=== PATIENT | female | born 1975 | race Caucasian/White ===

== ENCOUNTER 2018-03-26 10:38 | Inpatient (IN) | END 2018-03-28 14:22 | disposition home or self-care (01) | DRG 65 ==

== ENCOUNTER 2018-04-12 16:31 | Inpatient (IN) | payer OTHER ==
[~2018-04-12] VITALS: Ht 165.1 cm; Wt 103.0 kg
[~2018-04-12 16:31] MED LIST: ACET325T33 PO; ASPI325T32 PO; ATOR40TA68 PO; DOCU-216 PO; LOSA1TAB9 PO; METO-319 PO; METO-336 PO; NICO-544 TRANSDERM; NIFE30TA2 PO; TRAM50TA PO
--- NOTE | 2018-04-12 16:52 | ERD ---
ER Documentation Chief Complaint Chief Complaint BIB SELF, CC: DIZZY, CANNOT WALK STRAIGHT SINCE MORNING, HX OF STROKE HPI This is a 42-year-old female with a prior history of stroke, with she presented to the ED on March 25, with dizziness, today her complaint is dizziness again associated with vomiting, began last night acute/early subacute left gangliocapsular lacunar infarct involving the posterior limb internal capsule ROS All systems reviewed and are negative except as per history of present illness. Medications Home Meds Active Scripts Metoprolol Succinate* (Toprol XL*) 100 Mg Tab.sr.24h, 100 MG PO DAILY for 30 Days, #30 Prov:ÁNGEL DENSON MD 03/28/18 Atorvastatin* (Atorvastatin*) 40 Mg Tablet, 40 MG PO QHS for 14 Days, #15 TAB Prov:ÁNGEL DENSON MD 03/28/18 Aspirin (Aspir-Sherri) 325 Mg Tablet.dr, 325 MG PO DAILY for 14 Days Prov:ÁNGEL DENSON MD 03/28/18 Metoprolol Succinate* (Toprol XL*) 50 Mg Tab.er.24h, 50 MG PO DAILY for 15 Days, #15 Prov:ÁNGEL DENSON MD 03/28/18 Reported Medications Metformin Hcl* (Metformin Hcl*) 500 Mg Tablet, 500 MG PO WITH MEALS, #90 TAB 04/12/18 Losartan/Hydrochlorothiazide (Hyzaar 100-12.5 Tablet) 1 Each Tablet, 1 EACH PO DAILY, TAB 03/25/18 Tramadol Hcl* (Ultram*) 50 Mg Tablet, 50 MG PO TID PRN for PAIN, TAB 03/25/18 Discontinued Scripts Nifedipine (Procardia Xl) 30 Mg Tab.er.24, 30 MG PO DAILY for 30 Days, #30 TAB Prov:ÁNGEL DENSON MD 03/28/18 Docusate Sodium (Dok) 100 Mg Capsule, 100 MG PO Q12H PRN for CONSTIPATION for 1 Day, CAP Prov:ÁNGEL DENSON MD 03/28/18 Acetaminophen* (Tylenol*) 325 Mg Tablet, 650 MG PO Q6H PRN for PAIN LEVEL 1-3 OR FEVER for 1 Day, TAB Prov:ÁNGEL DENSON MD 03/28/18 Nicotine* (Nicotine* Patch) 7 mg/day Patch, 1 PATCH TRANSDERM DAILY PRN for CONTROL WITHDRAWAL SYMPTOMS for 1 Day Prov:ÁNGEL DENSON MD 03/28/18 Allergies Allergies: Coded Allergies: Penicillins (Verified Allergy, Unknown, rash/facial swelling, 04/12/18) PMhx/Soc History of Surgery: Yes () Anesthesia Reaction: No Hx Neurological Disorder: Yes (admitted for CVA) Hx Respiratory Disorders: No Hx Cardiac Disorders: Yes (HTN, hypothyroid) Hx Psychiatric Problems: No Hx Miscellaneous Medical Probl: Yes (See EMR for details. ) Hx Alcohol Use: No Hx Substance Use: No Hx Tobacco Use: Yes Physical Exam Vitals Vital Signs Date Temp Pulse Resp B/P (MAP) Pulse Ox O2 O2 Flow FiO2 Time Delivery Rate 04/12/18 97 17 157/98 99 Room Air 17:00 (117) 04/12/18 98 24 147/93 99 Room Air 16:40 (111) 04/12/18 98.1 103 19 173/102 16:35 (125) Physical Exam Const: No acute distress Head: Atraumatic Eyes: Normal Conjunctiva ENT: Normal External Ears, Nose and Mouth. Neck: Full range of motion. No meningismus. Resp: Clear to auscultation bilaterally Cardio: Regular rate and rhythm, no murmurs Abd: Soft, non tender, non distended. Normal bowel sounds Skin: No petechiae or rashes Back: No midline or flank tenderness Ext: No cyanosis, or edema Neur: Awake and alert, cranial nerves II through XII intact, no cerebellar ataxia Psych: Normal Mood and Affect Result Diagram: 04/12/18 1649 04/12/18 1649 Results 24 hrs Laboratory Tests Test 04/12/18 16:47 04/12/18 16:49 Bedside Glucose 231 mg/dL White Blood Count 11.7 10^3/ul Red Blood Count 5.15 10^6/ul Hemoglobin 15.3 g/dl Hematocrit 44.3 % Mean Corpuscular Volume 86.0 fl Mean Corpuscular Hemoglobin 29.7 pg Mean Corpuscular Hemoglobin Concent 34.5 g/dl Red Cell Distribution Width 13.1 % Platelet Count 395 10^3/UL Mean Platelet Volume 10.0 fl Immature Granulocytes % 0.300 % Neutrophils % 76.5 % Lymphocytes % 18.7 % Monocytes % 3.9 % Eosinophils % 0.3 % Basophils % 0.3 % Nucleated Red Blood Cells % 0.0 /100WBC Immature Granulocytes # 0.040 10^3/ul Neutrophils # 9.0 10^3/ul Lymphocytes # 2.2 10^3/ul Monocytes # 0.5 10^3/ul Eosinophils # 0.0 10^3/ul Basophils # 0.0 10^3/ul Nucleated Red Blood Cells # 0.0 10^3/ul Prothrombin Time 13.0 Sec Prothrombin Time Ratio 1.0 INR International Normalized Ratio 0.97 Activated Partial Thromboplast Time 26.9 Sec Sodium Level 137 mmol/L Potassium Level 4.1 mmol/L Chloride Level 101 mmol/L Carbon Dioxide Level 25 mmol/L Anion Gap 11 Blood Urea Nitrogen 15 mg/dl Creatinine 0.52 mg/dl Est Glomerular Filtrat Rate mL/min > 60 mL/min Glucose Level 239 mg/dl Hemoglobin A1c 7.4 % Calcium Level 10.5 mg/dl Creatine Kinase 37 IU/L Creatine Kinase Index 1.0 Creatinine Kinase MB (Mass) 0.36 ng/ml Troponin I < 0.012 ng/ml Triglycerides Level 371 mg/dl Cholesterol Level 189 mg/dl LDL Cholesterol, Calculated 81 mg/dl HDL Cholesterol 34 mg/dl Cholesterol/HDL Ratio 5.5 RATIO Ethyl Alcohol Level < 10.0 mg/dl Current Medications Medications Dose Sig/Josh Start Time Status Last (Trade) Ordered Route PRN Stop Time Admin Dose Reason Admin IV Flush 10 ml STK-MED 04/12/18 DC (NS 10 ml) ONCE .ROUTE 16:59 04/12/18 17:00 Sodium 100 ml @ ud STK-MED 04/12/18 DC Chloride ONCE .ROUTE 16:59 04/12/18 17:00 Iohexol 100 ml @ ud STK-MED 04/12/18 DC ONCE .ROUTE 16:59 04/12/18 17:00 Procedures/MDM This is a 42-year-old female presents for evaluation of vertiginous dizziness and nausea and vomiting. As noted above the patient has a history of stroke, which had been diagnosed by MRI on March 25, given her recurrence in symptoms, I ordered a code stroke, CT and CTA were negative, and I discussed the case with Dr. Denson, who did not recommend TPA at this time, as the patient had a recent stroke and her symptoms are now the same, this could be her previous stroke symptoms being exacerbated by hyperglycemia or infection. She will be admitted to telemetry, patient was agreeable to this plan of care. Critical Care Time: 35 minutes Treatments/Evaluations: Close monitoring and treatment of unstable vital signs, cardiorespiratory, and neurologic status, while maintaining tight balance of fluid, respiratory, and cardiac interventions. This time includes discussing the case with the patient and the patient's family. This time does not include all procedures stated elsewhere in this record. This time also includes reviewing old records, labs and radiological studies. This time includes examining and re- examining the patient. Additionally, this time also includes arranging care with admitting and consulting physicians. EKG: Rate/Rhythm: Normal Sinus Rhythm QRS, ST, T-waves: ST depressions noted in lead II, no ST elevations Impression: Abnormal EKG, no arrhythmia Departure Diagnosis: Primary Impression: Vertigo Additional Impression: History of stroke Condition: Stable ISAAK CHEEMA MD Apr 12, 2018 16:52
[2018-04-12] MEDS ORDERED: IOHEXOL 100 ML ONE (16:59)
[2018-04-12] MEDS ORDERED: SOD CHLORIDE 0.9% 100 ML ONE (16:59)
[2018-04-12] MEDS ORDERED: METF500T24 PO (17:13)
--- NOTE | 2018-04-12 17:45 | CONS ---
DATE OF ADMISSION: 04/12/2018 DATE OF CONSULTATION: 04/12/2018 I have asked to see the patient for recurrent vertigo. HISTORY OF PRESENT ILLNESS: The patient is a 42-year-old female with past medical history of hyperch olesterolemia, hypertension and diabetes. The patient was admitted in the middle of 03/2018, at [facility] h time she suffered a very small lacunar left-sided stroke with symptoms of vertigo. The patient now returns with similar symptoms. She denies dysarthria. She denies dysphagia. She denies diplopia. The patient denies weakness of her arms or legs. The patient does feel as though she has nausea, vo miting and mild headache. The patient has been taking aspirin and has been compliant with that. The patient's prior workup revealed no large vessel disease. Again tonight, the patient had a CT scan o f the head as well as a CTA of the head and neck which revealed no large vessel disease. The patient has had no prior history of hemorrhage. PAST MEDICAL HISTORY: As described. PHYSICAL EXAMINATION: NEUROLOGIC: She scored an NIH stroke scale score of 0, but did have subjective symptoms of vertigo. VITAL SIGNS: Her pulse rate was 95, sinus rhythm. Her blood pressure is 157/88. LABORATORY DATA: The patient's blood sugar was 231. ASSESSMENT: This is a 42-year-old female who has recurrent of vertigo that is likely ischemic in nathalia ure. This is likely from worsening of her prior deficit due to hyperglycemia, mild infection or othe r medical cause or new recurrent lacunar syndrome. The patient should be given a fluid bolus of 500 mL and hydrated. She should be allowed to be permissively hypertensive. She should be followed with frequent neuro checks. The patient should have Plavix added to her regimen of aspirin and this shou ld be overlapped for 2 weeks, after which she should be maintained on monotherapy Plavix. The patien t is not a candidate for endovascular therapy for TPA. I have discussed her workup and assessment wi the emergency department. Dictated By: HILARY BERNAL CM/KYLEE Conf#: [id number] DID#: [id number] CC: ISAAK CHEEMA MD;*EndCC*
[2018-04-12] MEDS ORDERED: ACETAMINOPHEN 650 MG SUPP PR PRN (18:00)
[2018-04-12] MEDS ORDERED: BISACODYL 10 MG SUPP PR PRN (18:00)
[2018-04-12] MEDS ORDERED: DOCUSATE SODIUM 100 MG CAP PO PRN (18:00)
[2018-04-12] MEDS ORDERED: ACETAMINOPHEN 325 MG TAB PO PRN (18:00)
[2018-04-12] MEDS ORDERED: morphine 2 MG INJ IV PRN (18:00)
[2018-04-12] MEDS ORDERED: NACL 0.9% 3 ML SYG IV SCH (18:00)
[2018-04-12] MEDS ORDERED: BISACODYL (EC) 5 MG TAB PO PRN (18:00)
[2018-04-12] MEDS ORDERED: ONDANSETRON 4 MG INJ IV PRN (18:00)
[2018-04-12] MEDS ORDERED: LABETALOL HCL 20MG INJ IV PRN (18:00)
[2018-04-12] MEDS ORDERED: OXYCODONE/ACETAMINOPHEN (5/325) TAB PO PRN (18:00)
[2018-04-12] MEDS ORDERED: GLUCOSE GEL 15 GRAM TUBE BUCCAL PRN (18:30)
[2018-04-12] MEDS ORDERED: GLUCOSE GEL 15 GRAM TUBE PO PRN ×2 (18:30)
[2018-04-12] MEDS ORDERED: DEXTROSE 50% 50 ML SYRINGE IV PRN ×2 (18:30)
[2018-04-12] MEDS ORDERED: GLUCAGON 1 MG INJ IM PRN (18:30)
[2018-04-12] MEDS ORDERED: MECLIZINE 12.5 MG TAB PO ONE (19:00)
[2018-04-12] MEDS: INSULIN ASPART [NOVOLOG] 3 ML PEN SC SCH ×2 (19:29→21:20)
[2018-04-12] MEDS: SOD CHLORIDE 0.9% 1,000 ML IV SCH (19:58)
[2018-04-12 20:15] VITALS: Ht 165.1 cm; Wt 103.0 kg
[2018-04-12] MEDS ORDERED: LORAZEPAM 2 MG INJ IV ONE (20:30)
[2018-04-12] MEDS ORDERED: INSULIN ASPART [NOVOLOG] 3 ML PEN SC SCH (21:00)
[2018-04-12] MEDS: FAMOTIDINE 20 MG TAB PO SCH (21:11)
[2018-04-12 22:44] VITALS: BP 161/74; PULSE 84; RESP 18
[2018-04-13] VITALS (10 sets, daily range): BP systolic 125–133; BP diastolic 66–70; PULSE 78–92; RESP 16–18
[2018-04-13] MEDS ORDERED: ZOLPIDEM 5 MG TAB PO ONE (00:30)
[2018-04-13] MEDS ORDERED: ACCU-CHEK XX SCH (02:00)
[2018-04-13] MEDS: SOD CHLORIDE 0.9% 1,000 ML IV SCH ×3 (04:14→13:53)
[2018-04-13] MEDS: FAMOTIDINE 20 MG TAB PO SCH (08:07)
[2018-04-13] MEDS: INSULIN ASPART [NOVOLOG] 3 ML PEN SC SCH ×3 (08:12→17:09)
--- NOTE | 2018-04-13 08:30 | CONS ---
Assessment/Plan Assessment/Plan Hospital Course A: 42 yo F with multiple stroke risk factors who p/w constant vertigo x 2 days, for which neurology is consulted. Most ominously concerning for a posterior circulation stroke. CTH is unremarkable. CTA H/N is unremarkable. P: MRI brain without contrast for further characterization Give ASA 325mg x1 dose now, followed by ASA 81mg daily for secondary stroke prevention Start Lipitor 40mg qhs for the same. Cont BP, BG and other medical management per primary PT/OT/ST as necessary Will follow clinically Result Diagram: 04/13/18 0549 04/13/18 0550 Results 24hrs Laboratory Tests Test 04/12/18 16:47 04/12/18 16:49 04/12/18 18:29 04/12/18 19:07 Bedside Glucose 231 H 202 White Blood Count 11.7 #H Red Blood Count 5.15 Hemoglobin 15.3 Hematocrit 44.3 Mean Corpuscular Volume 86.0 Mean Corpuscular 29.7 Hemoglobin Mean Corpuscular 34.5 Hemoglobin Concent Red Cell Distribution 13.1 Width Platelet Count 395 Mean Platelet Volume 10.0 Immature Granulocytes % 0.300 Neutrophils % 76.5 Lymphocytes % 18.7 Monocytes % 3.9 Eosinophils % 0.3 Basophils % 0.3 Nucleated Red Blood 0.0 Cells % Immature Granulocytes # 0.040 H Neutrophils # 9.0 H Lymphocytes # 2.2 Monocytes # 0.5 Eosinophils # 0.0 Basophils # 0.0 Nucleated Red Blood 0.0 Cells # Prothrombin Time 13.0 Prothrombin Time Ratio 1.0 INR International 0.97 Normalized Ratio Activated 26.9 Partial Thromboplast Time Sodium Level 137 Potassium Level 4.1 Chloride Level 101 Carbon Dioxide Level 25 Anion Gap 11 Blood Urea Nitrogen 15 Creatinine 0.52 Est Glomerular Filtrat > 60 Rate mL/min Glucose Level 239 H Hemoglobin A1c 7.4 H Calcium Level 10.5 H Creatine Kinase 37 Creatine Kinase Index 1.0 Creatinine Kinase MB 0.36 (Mass) Troponin I < 0.012 Triglycerides Level 371 H Cholesterol Level 189 LDL Cholesterol, 81 Calculated HDL Cholesterol 34 Cholesterol/HDL Ratio 5.5 Ethyl Alcohol Level < 10.0 H Urine Color YELLOW Urine Clarity CLEAR Urine pH 6.0 Urine Specific [place] > 1.060 H Urine Ketones NEGATIVE Urine Nitrite NEGATIVE Urine Bilirubin NEGATIVE Urine Urobilinogen NEGATIVE Urine Leukocyte Esterase NEGATIVE Urine Microscopic RBC 5 Urine Microscopic WBC 3 Urine Squamous FEW Epithelial Cells Urine Hemoglobin 1+ H Urine Glucose NEGATIVE Urine Total Protein 3+ H Urine Opiates Screen Negative Urine Barbiturates Negative Urine Amphetamines Negative Screen Urine Benzodiazepines Negative Screen Urine Cocaine Screen Negative Urine Cannabinoids Negative Test 04/12/18 21:17 04/13/18 02:55 04/13/18 05:49 04/13/18 05:50 Bedside Glucose 285 H 280 H White Blood Count 10.0 Red Blood Count 4.86 Hemoglobin 14.3 Hematocrit 42.1 Mean Corpuscular Volume 86.6 Mean Corpuscular 29.4 Hemoglobin Mean Corpuscular 34.0 Hemoglobin Concent Red Cell Distribution 13.2 Width Platelet Count 375 Mean Platelet Volume 10.5 H Immature Granulocytes % 0.300 Neutrophils % 66.2 Lymphocytes % 25.7 Monocytes % 6.4 Eosinophils % 1.0 Basophils % 0.4 Nucleated Red Blood 0.0 Cells % Immature Granulocytes # 0.030 Neutrophils # 6.6 Lymphocytes # 2.6 Monocytes # 0.6 Eosinophils # 0.1 Basophils # 0.0 Nucleated Red Blood 0.0 Cells # Hemoglobin A1c 7.3 H Sodium Level 140 Potassium Level 4.0 Chloride Level 100 Carbon Dioxide Level 27 Anion Gap 13 Blood Urea Nitrogen 16 Creatinine 0.59 Est Glomerular Filtrat > 60 Rate mL/min Glucose Level 217 Calcium Level 10.1 Phosphorus Level 3.6 Magnesium Level 1.8 Total Bilirubin 0.1 L Direct Bilirubin 0.00 Indirect Bilirubin 0.1 Aspartate Amino 19 Transf (AST/SGOT) Alanine 38 Aminotransferase (ALT/SG PT) Alkaline Phosphatase 45 Total Protein 7.5 Albumin 4.3 Globulin 3.20 Albumin/Globulin Ratio 1.34 Test 04/13/18 08:06 Bedside Glucose 214 Consultation Date/Type/Reason Admit Date/Time Apr 12, 2018 at 17:51 Type of Consult Neurology Reason for Consultation r/o stroke Requesting Provider: ÁNGEL DENSON MD Date/Time of Note DATE: 04/13/18 TIME: 08:30 Hx of Present Illness 42 yo F with hx of recent CVA (03/26), HTN, HLD, DM, smoking, and other comorbidities who presented to the ED with c/o vertigo. Hx was obtained from pt who is a good historian. Per the pt, she stated that on the evening of 04/11, she started feeling severe dizziness, like the room was spinning. She stated that she tried to sleep it off, but the dizziness still persisted in the morning. She stated that it got worse over the course of the day, causing her to feel nauseous and vomit. At that point, she brought herself to the ED for further evaluation. The pt states that she has been compliant with her ASA/Lipitor following d/c last month. She currently endorses dizziness, and states that it has improved somewhat today. She denies headache, weakness, lethargy, confusion, visual or speech changes, numbness, tingling, or gait instability. Exam/Review of Systems Vital Signs Vitals Vital Signs Date Temp Pulse Resp B/P (MAP) Pulse Ox O2 O2 Flow FiO2 Time Delivery Rate 04/13/18 97.8 89 18 133/66 93 07:30 (88) 04/12/18 Room Air 21:22 Intake and Output 04/12/18 04/12/18 04/13/18 1515:00 23:00 07:00 IntakeIntake Total 120 ml BalanceBalance 120 ml Exam PE: Gen Appearance: No Apparent Distress HEENT: Normocephalic Cardiovascular: Regular rate Lungs: Clear bilaterally Abdomen: Soft Extremities: Dry NE: The patient was alert and oriented. Language was normal. Fund of knowledge was normal. Pupils were equal and reactive to light. There was no afferent pupillary defect. Visual garcia were normal. Funduscopic examination was limited. Extra-ocular movements were full. Ptosis was absent. There was no nystagmus. Facial sensation was normal. Face was symmetric with normal strength. Hearing was intact. Palate movements were normal. Neck strength was normal. There was normal tongue bulk and speed of movement. Tone was normal. Muscle bulk was normal. I did not see fasciculations. Arms and legs were strong. Vibration sensation was normal. Temperature and pinprick sensation was normal. Rapid alternating movements were normal. There was no dysmetria. There was no intention tremor. Gait was deferred due to bedrest. Arm and leg reflexes were 2+ and symmetric. Sanderson's sign was absent. Plantar responses were flexor. Medications Medications Current Medications Sodium Chloride 1,000 ml @ 100 mls/hr Q10H IV Last administered on 04/13/18at 04:14; Admin Dose 100 MLS/HR; Start 04/12/18 at 17:54 IV Flush (NS 3 ml) 3 ml PER PROTOCOL IV ; Start 04/12/18 at 18:00 Ondansetron HCl (Zofran Inj) 4 mg Q6H PRN IV NAUSEA AND/OR VOMITING Last administered on 04/12/18at 18:43; Admin Dose 4 MG; Start 04/12/18 at 18:00 Acetaminophen (Tylenol Tab) 650 mg Q6H PRN PO PAIN LEVEL 1-3 OR FEVER; Start 04/12/18 at 18:00 Acetaminophen (Tylenol Supp) 650 mg Q6H PRN ME PAIN LEVEL 1-3 OR FEVER; Start 04/12/18 at 18:00 Oxycodone/ Acetaminophen (Percocet (5/ 325)) 1 tab Q6H PRN PO MODERATE PAIN LEVEL 4-6 Last administered on 04/12/18at 19:56; Admin Dose 1 TAB; Start 04/12/18 at 18:00 Morphine Sulfate (morphine) 2 mg Q4H PRN IV SEVERE PAIN LEVEL 7-10 Last administered on 04/12/18at 18:43; Admin Dose 2 MG; Start 04/12/18 at 18:00 Docusate Sodium (Colace) 100 mg Q12H PRN PO CONSTIPATION; Start 04/12/18 at 18:00 Bisacodyl (Dulcolax) 5 mg DAILY PRN PO CONSTIPATION; Start 04/12/18 at 18:00 Bisacodyl (Dulcolax Supp) 10 mg DAILY PRN ME CONSTIPATION; Start 04/12/18 at 18:00 Famotidine (Pepcid) 20 mg Q12 PO Last administered on 04/13/18at 08:07; Admin Dose 20 MG; Start 04/12/18 at 21:00 Enoxaparin Sodium (Lovenox) 40 mg DAILY SC Last administered on 04/13/18at 08:12; Admin Dose 40 MG; Start 04/13/18 at 09:00 Diagnostic Test (Pha) (Accu-Chek) 1 ea 02 XX Last administered on 04/13/18at 02:00; Admin Dose 1 EA; Start 04/13/18 at 02:00 Insulin Aspart (Novolog Insulin Pen) NOVOLOG *MODERATE* ALGORITHM WITH MEALS BEDTIME SC Last administered on 04/13/18at 08:12; Admin Dose 4 UNIT; Start 04/12/18 at 18:00 Labetalol HCl (Labetalol) 10 mg Q4H PRN IV ELEVATED SYSTOLIC BP; Start 04/12/18 at 18:00 Miscellaneous Information 1 ea NOTE XX ; Start 04/12/18 at 18:30 Glucose (Glutose) 15 gm Q15M PRN PO DECREASED GLUCOSE; Start 04/12/18 at 18:30 Glucose (Glutose) 22.5 gm Q15M PRN PO DECREASED GLUCOSE; Start 04/12/18 at 18:30 Dextrose (D50w Syringe) 25 ml Q15M PRN IV DECREASED GLUCOSE; Start 04/12/18 at 18:30 Dextrose (D50w Syringe) 50 ml Q15M PRN IV DECREASED GLUCOSE; Start 04/12/18 at 18:30 Glucagon (Glucagen) 1 mg Q15M PRN IM DECREASED GLUCOSE; Start 04/12/18 at 18:30 Glucose (Glutose) 15 gm Q15M PRN BUCCAL DECREASED GLUCOSE; Start 04/12/18 at 18:30 Aspirin (Aspirin) 81 mg DAILY PO ; Start 04/13/18 at 09:00 Atorvastatin Calcium (Lipitor) 40 mg HS PO ; Start 04/13/18 at 21:00 Past Medical History reviewed Medications Current Medications Sodium Chloride 1,000 ml @ 100 mls/hr Q10H IV Last administered on 04/13/18at 04:14; Admin Dose 100 MLS/HR; Start 04/12/18 at 17:54 IV Flush (NS 3 ml) 3 ml PER PROTOCOL IV ; Start 04/12/18 at 18:00 Ondansetron HCl (Zofran Inj) 4 mg Q6H PRN IV NAUSEA AND/OR VOMITING Last administered on 04/12/18at 18:43; Admin Dose 4 MG; Start 04/12/18 at 18:00 Acetaminophen (Tylenol Tab) 650 mg Q6H PRN PO PAIN LEVEL 1-3 OR FEVER; Start 04/12/18 at 18:00 Acetaminophen (Tylenol Supp) 650 mg Q6H PRN ME PAIN LEVEL 1-3 OR FEVER; Start 04/12/18 at 18:00 Oxycodone/ Acetaminophen (Percocet (5/ 325)) 1 tab Q6H PRN PO MODERATE PAIN LEVEL 4-6 Last administered on 04/12/18at 19:56; Admin Dose 1 TAB; Start 04/12/18 at 18:00 Morphine Sulfate (morphine) 2 mg Q4H PRN IV SEVERE PAIN LEVEL 7-10 Last administered on 04/12/18at 18:43; Admin Dose 2 MG; Start 04/12/18 at 18:00 Docusate Sodium (Colace) 100 mg Q12H PRN PO CONSTIPATION; Start 04/12/18 at 18:00 Bisacodyl (Dulcolax) 5 mg DAILY PRN PO CONSTIPATION; Start 04/12/18 at 18:00 Bisacodyl (Dulcolax Supp) 10 mg DAILY PRN ME CONSTIPATION; Start 04/12/18 at 18:00 Famotidine (Pepcid) 20 mg Q12 PO Last administered on 04/13/18at 08:07; Admin Dose 20 MG; Start 04/12/18 at 21:00 Enoxaparin Sodium (Lovenox) 40 mg DAILY SC Last administered on 04/13/18at 08:12; Admin Dose 40 MG; Start 04/13/18 at 09:00 Diagnostic Test (Pha) (Accu-Chek) 1 ea 02 XX Last administered on 04/13/18at 02:00; Admin Dose 1 EA; Start 04/13/18 at 02:00 Insulin Aspart (Novolog Insulin Pen) NOVOLOG *MODERATE* ALGORITHM WITH MEALS BEDTIME SC Last administered on 04/13/18at 08:12; Admin Dose 4 UNIT; Start 04/12/18 at 18:00 Labetalol HCl (Labetalol) 10 mg Q4H PRN IV ELEVATED SYSTOLIC BP; Start 04/12/18 at 18:00 Miscellaneous Information 1 ea NOTE XX ; Start 04/12/18 at 18:30 Glucose (Glutose) 15 gm Q15M PRN PO DECREASED GLUCOSE; Start 04/12/18 at 18:30 Glucose (Glutose) 22.5 gm Q15M PRN PO DECREASED GLUCOSE; Start 04/12/18 at 18:30 Dextrose (D50w Syringe) 25 ml Q15M PRN IV DECREASED GLUCOSE; Start 04/12/18 at 18:30 Dextrose (D50w Syringe) 50 ml Q15M PRN IV DECREASED GLUCOSE; Start 04/12/18 at 18:30 Glucagon (Glucagen) 1 mg Q15M PRN IM DECREASED GLUCOSE; Start 04/12/18 at 18:30 Glucose (Glutose) 15 gm Q15M PRN BUCCAL DECREASED GLUCOSE; Start 04/12/18 at 18:30 Aspirin (Aspirin) 81 mg DAILY PO ; Start 04/13/18 at 09:00 Atorvastatin Calcium (Lipitor) 40 mg HS PO ; Start 04/13/18 at 21:00 Allergies: Coded Allergies: Penicillins (Verified Allergy, Unknown, rash/facial swelling, 04/12/18) Past Surgical History reviewed Social History reviewed Smoking Status: Current every day smoker GABRIEL GUERRERO NP Apr 13, 2018 08:30 ANNE MARIE DURHAM Apr 14, 2018 05:38
[2018-04-13] MEDS ORDERED: ASPIRIN 325 MG TAB PO ONE (09:00)
[2018-04-13] MEDS ORDERED: ENOXAPARIN 40 MG/0.4 ML SYG SC SCH (09:00)
[2018-04-13] MEDS ORDERED: ASPIRIN 81 MG TAB PO SCH (09:00)
--- NOTE | 2018-04-13 16:29 | HP ---
Date/Time of Note Date/Time of Note DATE: 04/13/18 TIME: 16:24 Assessment/Plan VTE Prophylaxis Risk score (from Nsg)>0 risk: 4 SCD applied (from Ns): Yes SCD contraindicated: low risk/ambulating Pharmacological prophylaxis: NA/contraindicated Pharm contraindication: low risk/ambulating Lines/Catheters IV Catheter Type (from [facility]): Peripheral IV Assessment/Plan Hospital Course Chief complaint dizziness History of present illness 42-year-old female who was watching TV on her couch. Lying down in an unusual position. Had sudden onset of dizziness while moving around. No loss of speech or vision. No focal deficits. No syncope palpitations chest pain. Denies any recent dehydration or caloric intake loss. Patient was here a few weeks ago with a stroke. She is adherent to her medications. This episode was not associated with any focal deficits. ER: Stable vital signs not a candidate for TPA if CAT scan negative Past medical history 1. Rt Ac lacunar ischemic stroke, likely hypertensive in origin. Hypercoagulable panel sent. 2. Chr labile hypertension. 3. Tobacco abuse, past 4. Dyslipidemia. Was off statin for some time 5. Arthritis: Rheumatoid vs osteo? 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 Family history of cancer. 7. Type 2 diabetes 8. Metabolic syndrome/obesity 9. Fatigue; TSH Past surgical history None Social No active tobacco, history of tobacco abuse. No alcohol Family history No family history of early coronary scans restart Review of systems neuro no headache no loss speech vision cardio no chest pain no dyspnea edema lungs no cough no wheeze Abd pain no nausea vomiting diarrhea Genitourinary: No abdominal pain no fever dysuria Hematologic system: No hemoptysis hematochezia melena Psychiatry: The patient has a stable mood advancing agitation depression Constitutional: No fevers no chills no weight loss that I am aware of Endocrine positive dyslipidemia, diabetes metabolic syndrome no thyroid dysfunction Physical exam No pallor adenopathy droop Regular no murmur rub gallop Clear Benign No edema Neuro : Cranial nerves II to XII grossly intact Motor: 5 x 5 transfer Sensory: Symmetrical Reflexes: Symmetrical Babinski's none Assessment plan 1. Acute dizziness, rule out TIA stroke, stable continue neurochecks 2. Recent ischemic stroke possibly with re- expression 3. Metabolic syndrome Result Diagram: 04/13/18 0549 04/13/18 0550 Results 24hrs Laboratory Tests Test 04/12/18 16:47 04/12/18 16:49 04/12/18 18:29 04/12/18 19:07 Bedside Glucose 231 H 202 White Blood Count 11.7 #H Red Blood Count 5.15 Hemoglobin 15.3 Hematocrit 44.3 Mean Corpuscular Volume 86.0 Mean Corpuscular 29.7 Hemoglobin Mean Corpuscular 34.5 Hemoglobin Concent Red Cell Distribution 13.1 Width Platelet Count 395 Mean Platelet Volume 10.0 Immature Granulocytes % 0.300 Neutrophils % 76.5 Lymphocytes % 18.7 Monocytes % 3.9 Eosinophils % 0.3 Basophils % 0.3 Nucleated Red Blood 0.0 Cells % Immature Granulocytes # 0.040 H Neutrophils # 9.0 H Lymphocytes # 2.2 Monocytes # 0.5 Eosinophils # 0.0 Basophils # 0.0 Nucleated Red Blood 0.0 Cells # Prothrombin Time 13.0 Prothrombin Time Ratio 1.0 INR International 0.97 Normalized Ratio Activated 26.9 Partial Thromboplast Time Sodium Level 137 Potassium Level 4.1 Chloride Level 101 Carbon Dioxide Level 25 Anion Gap 11 Blood Urea Nitrogen 15 Creatinine 0.52 Est Glomerular Filtrat > 60 Rate mL/min Glucose Level 239 H Hemoglobin A1c 7.4 H Calcium Level 10.5 H Creatine Kinase 37 Creatine Kinase Index 1.0 Creatinine Kinase MB 0.36 (Mass) Troponin I < 0.012 Triglycerides Level 371 H Cholesterol Level 189 LDL Cholesterol, 81 Calculated HDL Cholesterol 34 Cholesterol/HDL Ratio 5.5 Ethyl Alcohol Level < 10.0 H Urine Color YELLOW Urine Clarity CLEAR Urine pH 6.0 Urine Specific [place] > 1.060 H Urine Ketones NEGATIVE Urine Nitrite NEGATIVE Urine Bilirubin NEGATIVE Urine Urobilinogen NEGATIVE Urine Leukocyte Esterase NEGATIVE Urine Microscopic RBC 5 Urine Microscopic WBC 3 Urine Squamous FEW Epithelial Cells Urine Hemoglobin 1+ H Urine Glucose NEGATIVE Urine Total Protein 3+ H Urine Opiates Screen Negative Urine Barbiturates Negative Urine Amphetamines Negative Screen Urine Benzodiazepines Negative Screen Urine Cocaine Screen Negative Urine Cannabinoids Negative Test 04/12/18 21:17 04/13/18 02:55 04/13/18 05:49 04/13/18 05:50 Bedside Glucose 285 H 280 H White Blood Count 10.0 Red Blood Count 4.86 Hemoglobin 14.3 Hematocrit 42.1 Mean Corpuscular Volume 86.6 Mean Corpuscular 29.4 Hemoglobin Mean Corpuscular 34.0 Hemoglobin Concent Red Cell Distribution 13.2 Width Platelet Count 375 Mean Platelet Volume 10.5 H Immature Granulocytes % 0.300 Neutrophils % 66.2 Lymphocytes % 25.7 Monocytes % 6.4 Eosinophils % 1.0 Basophils % 0.4 Nucleated Red Blood 0.0 Cells % Immature Granulocytes # 0.030 Neutrophils # 6.6 Lymphocytes # 2.6 Monocytes # 0.6 Eosinophils # 0.1 Basophils # 0.0 Nucleated Red Blood 0.0 Cells # Hemoglobin A1c 7.3 H Sodium Level 140 Potassium Level 4.0 Chloride Level 100 Carbon Dioxide Level 27 Anion Gap 13 Blood Urea Nitrogen 16 Creatinine 0.59 Est Glomerular Filtrat > 60 Rate mL/min Glucose Level 217 Calcium Level 10.1 Phosphorus Level 3.6 Magnesium Level 1.8 Total Bilirubin 0.1 L Direct Bilirubin 0.00 Indirect Bilirubin 0.1 Aspartate Amino 19 Transf (AST/SGOT) Alanine 38 Aminotransferase (ALT/SG PT) Alkaline Phosphatase 45 Total Protein 7.5 Albumin 4.3 Globulin 3.20 Albumin/Globulin Ratio 1.34 Test 04/13/18 08:06 04/13/18 11:46 Bedside Glucose 214 197 HPI/ROS Admit Date/Time Admit Date/Time Apr 12, 2018 at 17:51 PMH/Family/Social Past Medical History Medications Current Medications Sodium Chloride 1,000 ml @ 100 mls/hr Q10H IV Last administered on 04/13/18at 11:47; Admin Dose 100 MLS/HR; Start 04/12/18 at 17:54 IV Flush (NS 3 ml) 3 ml PER PROTOCOL IV ; Start 04/12/18 at 18:00 Ondansetron HCl (Zofran Inj) 4 mg Q6H PRN IV NAUSEA AND/OR VOMITING Last administered on 04/12/18at 18:43; Admin Dose 4 MG; Start 04/12/18 at 18:00 Acetaminophen (Tylenol Tab) 650 mg Q6H PRN PO PAIN LEVEL 1-3 OR FEVER; Start 04/12/18 at 18:00 Acetaminophen (Tylenol Supp) 650 mg Q6H PRN MO PAIN LEVEL 1-3 OR FEVER; Start 04/12/18 at 18:00 Oxycodone/ Acetaminophen (Percocet (5/ 325)) 1 tab Q6H PRN PO MODERATE PAIN LEVEL 4-6 Last administered on 04/12/18at 19:56; Admin Dose 1 TAB; Start 04/12/18 at 18:00 Morphine Sulfate (morphine) 2 mg Q4H PRN IV SEVERE PAIN LEVEL 7-10 Last administered on 04/12/18at 18:43; Admin Dose 2 MG; Start 04/12/18 at 18:00 Docusate Sodium (Colace) 100 mg Q12H PRN PO CONSTIPATION; Start 04/12/18 at 18:00 Bisacodyl (Dulcolax) 5 mg DAILY PRN PO CONSTIPATION; Start 04/12/18 at 18:00 Bisacodyl (Dulcolax Supp) 10 mg DAILY PRN [place] CONSTIPATION; Start 04/12/18 at 18:00 Famotidine (Pepcid) 20 mg Q12 PO Last administered on 04/13/18at 08:07; Admin Dose 20 MG; Start 04/12/18 at 21:00 Enoxaparin Sodium (Lovenox) 40 mg DAILY SC Last administered on 04/13/18at 08:12; Admin Dose 40 MG; Start 04/13/18 at 09:00 Diagnostic Test (Pha) (Accu-Chek) 1 ea 02 XX Last administered on 04/13/18at 02:00; Admin Dose 1 EA; Start 04/13/18 at 02:00 Insulin Aspart (Novolog Insulin Pen) NOVOLOG *MODERATE* ALGORITHM WITH MEALS BEDTIME SC Last administered on 04/13/18at 11:55; Admin Dose 4 UNIT; Start 04/12/18 at 18:00 Labetalol HCl (Labetalol) 10 mg Q4H PRN IV ELEVATED SYSTOLIC BP; Start 04/12/18 at 18:00 Miscellaneous Information 1 ea NOTE XX ; Start 04/12/18 at 18:30 Glucose (Glutose) 15 gm Q15M PRN PO DECREASED GLUCOSE; Start 04/12/18 at 18:30 Glucose (Glutose) 22.5 gm Q15M PRN PO DECREASED GLUCOSE; Start 04/12/18 at 18:30 Dextrose (D50w Syringe) 25 ml Q15M PRN IV DECREASED GLUCOSE; Start 04/12/18 at 18:30 Dextrose (D50w Syringe) 50 ml Q15M PRN IV DECREASED GLUCOSE; Start 04/12/18 at 18:30 Glucagon (Glucagen) 1 mg Q15M PRN IM DECREASED GLUCOSE; Start 04/12/18 at 18:30 Glucose (Glutose) 15 gm Q15M PRN BUCCAL DECREASED GLUCOSE; Start 04/12/18 at 18:30 Atorvastatin Calcium (Lipitor) 40 mg HS PO ; Start 04/13/18 at 21:00 Aspirin (Aspirin) 81 mg DAILY PO ; Start 04/14/18 at 09:00 Coded Allergies: Penicillins (Verified Allergy, Unknown, rash/facial swelling, 04/12/18) Family History Significant Family History: no pertinent family hx Social History Smoking Status: Current every day smoker Exam/Review of Systems Vital Signs Vitals Vital Signs Date Temp Pulse Resp B/P (MAP) Pulse Ox O2 O2 Flow FiO2 Time Delivery Rate 04/13/18 98.0 78 16 125/69 98 15:26 (87) 04/12/18 Room Air 21:22 Intake and Output 04/12/18 04/12/18 04/13/18 1515:00 23:00 07:00 IntakeIntake Total 120 ml BalanceBalance 120 ml ÁNGEL DENSON MD Apr 13, 2018 16:29
--- NOTE | 2018-04-13 16:36 | DS ---
Date/Time of Note Date/Time of Note DATE: 04/13/18 TIME: 16:29 Discharge Summary Admission/Discharge Info Admit Date/Time Apr 12, 2018 at 17:51 Discharge Date/Time Patient Condition: Stable Procedures X-ray: No acute process CT brain: No acute process CTA head and neck. IMPRESSION: No CT evidence for a hemodynamically significant stenosis. Hx of Present Illness 42-year-old female admitted with concerns of strokelike symptoms. Symptoms of dizziness only. Hospital Course H Course 42-year-old female who was watching TV on her couch. Lying down in an unusual position. Had sudden onset of dizziness while moving around. No loss of speech or vision. No focal deficits. No syncope palpitations chest pain. Denies any recent dehydration or caloric intake loss. Patient was here a few weeks ago with a stroke. She is adherent to her medications. This episode was not a ssociated with any focal deficits. 1. Acute dizziness, rule out TIA stroke, stable continue neurochecks 2. Recent ischemic stroke possibly with re- expression 3. Metabolic syndrome Past medical history Rt ischemic lacunar stroke, likely htn in origin. Hypercoagulable panel sent; at this time they are incomplete: There are intermediate levels of protein S and factor V [place]. Chr labile hypertension. Tobacco abuse, past Dyslipidemia. Was off statin for some time Arthritis: Rheumatoid vs osteo? 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 Type 2 diabetes Metabolic syndrome/obesity Fatigue; TSH Home Meds Active Scripts Metoprolol Succinate* (Toprol XL*) 100 Mg Tab.sr.24h, 100 MG PO DAILY for 30 Days, #30 Prov:ÁNGEL DENSON MD 03/28/18 Atorvastatin* (Atorvastatin*) 40 Mg Tablet, 40 MG PO QHS for 14 Days, #15 TAB Prov:ÁNGEL DENSON MD 03/28/18 Aspirin (Aspir-Sherri) 325 Mg Tablet.dr, 325 MG PO DAILY for 14 Days Prov:ÁNGEL DENSON MD 03/28/18 Metoprolol Succinate* (Toprol XL*) 50 Mg Tab.er.24h, 50 MG PO DAILY for 15 Days, #15 Prov:ÁNGEL DENSON MD 03/28/18 Reported Medications Metformin Hcl* (Metformin Hcl*) 500 Mg Tablet, 500 MG PO WITH MEALS, #90 TAB 04/12/18 Losartan/Hydrochlorothiazide (Hyzaar 100-12.5 Tablet) 1 Each Tablet, 1 EACH PO DAILY, TAB 03/25/18 Tramadol Hcl* (Ultram*) 50 Mg Tablet, 50 MG PO TID PRN for PAIN, TAB 03/25/18 Discontinued Scripts Nifedipine (Procardia Xl) 30 Mg Tab.er.24, 30 MG PO DAILY for 30 Days, #30 TAB Prov:ÁNGEL DENSON MD 03/28/18 Docusate Sodium (Dok) 100 Mg Capsule, 100 MG PO Q12H PRN for CONSTIPATION for 1 Day, CAP Prov:ÁNGEL DENSON MD 03/28/18 Acetaminophen* (Tylenol*) 325 Mg Tablet, 650 MG PO Q6H PRN for PAIN LEVEL 1-3 OR FEVER for 1 Day, TAB Prov:ÁNGEL DENSON MD 03/28/18 Nicotine* (Nicotine* Patch) 7 mg/day Patch, 1 PATCH TRANSDERM DAILY PRN for CONTROL WITHDRAWAL SYMPTOMS for 1 Day Prov:ÁNGEL DENSON MD 03/28/18 Follow-up Plan PCP & Dr Deluna 1-2wks Primary Care Provider Not On Staff Doctor Time spent on discharge: > 30 minutes Pending Labs Laboratory Tests Test 04/12/18 16:47 04/12/18 16:49 04/12/18 18:29 04/12/18 19:07 Bedside 231 202 Glucose mg/dL (70-220) mg/dL (70-220) White Blood 11.7 Count 10^3/ul (4.8-1 0.8) Red Blood 5.15 Count 10^6/ul (4.20- 5.40) Hemoglobin 15.3 g/dl (12.0-16. 0) Hematocrit 44.3 % (37.0-47.0) Mean 86.0 Corpuscular fl (82.0-101.0 Volume ) Mean 29.7 Corpuscular pg (29.0-33.0) Hemoglobin Mean 34.5 Corpuscular g/dl (32.0-37. Hemoglobin Conc 0) ent Red Cell 13.1 Distribution % (11.5-14.5) Width Platelet Count 395 10^3/UL (140-4 15) Mean Platelet 10.0 Volume fl (7.4-10.4) Immature 0.300 Granulocytes % % (0.001-0.429 ) Neutrophils % 76.5 % (39.0-77.0) Lymphocytes % 18.7 % (15.0-51.0) Monocytes % 3.9 % (0.0-11.0) Eosinophils % 0.3 % (0.0-7.0) Basophils % 0.3 % (0.0-2.0) Nucleated Red 0.0 Blood Cells % /100WBC (0.0-0 .0) Immature 0.040 Granulocytes # 10^3/ul (0.0-0 .031) Neutrophils # 9.0 10^3/ul (1.6-7 .5) Lymphocytes # 2.2 10^3/ul (0.8-2 .9) Monocytes # 0.5 10^3/ul (0.3-0 .9) Eosinophils # 0.0 10^3/ul (0.0-0 .5) Basophils # 0.0 10^3/ul (0.0-0 .1) Nucleated Red 0.0 Blood Cells # 10^3/ul (0.0-0 .0) Prothrombin 13.0 Time Sec (11.9-14.9 ) Prothrombin 1.0 Time Ratio INR 0.97 International Normalized Rati o Activated 26.9 Partial Thrombo Sec (23.0-35.0 plast Time ) Sodium Level 137 mmol/L (135-14 4) Potassium 4.1 Level mmol/L (3.5-5. 1) Chloride Level 101 mmol/L (97-110 ) Carbon Dioxide 25 Level mmol/L (21-31) Anion Gap 11 (5-13) Blood Urea 15 Nitrogen mg/dl (7-20) Creatinine 0.52 mg/dl (0.44-1. 00) Est Glomerular > 60 Filtrat mL/min (>60) Rate mL/min Glucose Level 239 mg/dl (70-220) Hemoglobin A1c 7.4 % (0-5.9) Calcium Level 10.5 mg/dl (8.4-10. 2) Creatine 37 Kinase IU/L (23-200) Creatine Kinase 1.0 Index Creatinine 0.36 Kinase MB ng/ml (0.0-2.4 (Mass) ) Troponin I < 0.012 ng/ml (0.000-0 .120) Triglycerides 371 Level mg/dl (0-149) Cholesterol 189 Level mg/dl (100-200 ) LDL 81 mg/dl Cholesterol, Calculated HDL 34 Cholesterol mg/dl (34-88) Cholesterol/HDL 5.5 RATIO Ratio Ethyl Alcohol < 10.0 Level mg/dl (0-0) Urine Color YELLOW (YELLOW ) Urine Clarity CLEAR (CLEAR) Urine pH 6.0 (5.0-9.0) Urine Specific > [place] 1.060 (1.003-1 .030) Urine Ketones NEGATIVE mg/dL (NEGATIV E) Urine Nitrite NEGATIVE mg/dL (NEGATIV E) Urine NEGATIVE Bilirubin mg/dL (NEGATIV E) Urine NEGATIVE Urobilinogen mg/dL (NEGATIV E) Urine Leukocyte NEGATIVE Mauricio/u Esterase l Urine 5 /HPF (0-5) Microscopic RBC Urine 3 /HPF (0-5) Microscopic WBC Urine Squamous FEW /HPF (FEW) Epithelial Cell s Urine 1+ Hemoglobin mg/dL (NEGATIV E) Urine Glucose NEGATIVE mg/dL (NEGATIV E) Urine Total 3+ Protein mg/dl (NEGATIV E) Urine Opiates Negative (NEGA Screen TIVE) Urine Negative (NEGA Barbiturates TIVE) Urine Negative (NEGA Amphetamines TIVE) Screen Urine Negative (NEGA Benzodiazepines TIVE) Screen Urine Cocaine Negative (NEGA Screen TIVE) Urine Negative (NEGA Cannabinoids TIVE) Test 04/12/18 21:17 04/13/18 02:55 04/13/18 05:49 04/13/18 05:50 Bedside 285 280 Glucose mg/dL (70-220) mg/dL (70-220) White Blood 10.0 Count 10^3/ul (4.8-1 0.8) Red Blood 4.86 Count 10^6/ul (4.20- 5.40) Hemoglobin 14.3 g/dl (12.0-16. 0) Hematocrit 42.1 % (37.0-47.0) Mean 86.6 Corpuscular fl (82.0-101.0 Volume ) Mean 29.4 Corpuscular pg (29.0-33.0) Hemoglobin Mean 34.0 Corpuscular g/dl (32.0-37. Hemoglobin Conc 0) ent Red Cell 13.2 Distribution % (11.5-14.5) Width Platelet Count 375 10^3/UL (140-4 15) Mean Platelet 10.5 Volume fl (7.4-10.4) Immature 0.300 Granulocytes % % (0.001-0.429 ) Neutrophils % 66.2 % (39.0-77.0) Lymphocytes % 25.7 % (15.0-51.0) Monocytes % 6.4 % (0.0-11.0) Eosinophils % 1.0 % (0.0-7.0) Basophils % 0.4 % (0.0-2.0) Nucleated Red 0.0 Blood Cells % /100WBC (0.0-0 .0) Immature 0.030 Granulocytes # 10^3/ul (0.0-0 .031) Neutrophils # 6.6 10^3/ul (1.6-7 .5) Lymphocytes # 2.6 10^3/ul (0.8-2 .9) Monocytes # 0.6 10^3/ul (0.3-0 .9) Eosinophils # 0.1 10^3/ul (0.0-0 .5) Basophils # 0.0 10^3/ul (0.0-0 .1) Nucleated Red 0.0 Blood Cells # 10^3/ul (0.0-0 .0) Hemoglobin A1c 7.3 % (0-5.9) Sodium Level 140 mmol/L (135-14 4) Potassium 4.0 Level mmol/L (3.5-5. 1) Chloride Level 100 mmol/L (97-110 ) Carbon Dioxide 27 Level mmol/L (21-31) Anion Gap 13 (5-13) Blood Urea 16 Nitrogen mg/dl (7-20) Creatinine 0.59 mg/dl (0.44-1. 00) Est Glomerular > 60 Filtrat mL/min (>60) Rate mL/min Glucose Level 217 mg/dl (70-220) Calcium Level 10.1 mg/dl (8.4-10. 2) Phosphorus 3.6 Level mg/dl (2.5-4.9 ) Magnesium 1.8 Level mg/dl (1.7-2.5 ) Total 0.1 Bilirubin mg/dl (0.2-1.3 ) Direct 0.00 Bilirubin mg/dl (0.00-0. 20) Indirect 0.1 Bilirubin mg/dl (0-1.1) Aspartate Amino 19 Transf (AST/SGO IU/L (15-46) T) Alanine 38 Aminotransferas IU/L (13-69) e (ALT/SGPT) Alkaline 45 Phosphatase IU/L (42-121) Total Protein 7.5 g/dl (6.1-8.1) Albumin 4.3 g/dl (3.3-4.9) Globulin 3.20 g/dl (1.3-3.2) Albumin/Globuli 1.34 n Ratio Test 04/13/18 08:06 04/13/18 11:46 Bedside 214 197 Glucose mg/dL (70-220) mg/dL (70-220) ÁNGEL DENSON MD Apr 13, 2018 16:36
--- NOTE | 2018-04-13 16:37 | PDOCDIS ---
Discharge Instructions CONDITION [id number] Patient Condition: [id number] Good HOME CARE INSTRUCTIONS: [id number] Special Diet: [id number] low fat low cholesterol ACTIVITY: [id number] Activity Restrictions: [id number] Slowly Increase Activity Do not Drive FOLLOW UP/APPOINTMENTS Follow-up Plan PCP & Dr Deluna 1-2wÁNGEL Patton MD Apr 13, 2018 16:37
[2018-04-13] MEDS ORDERED: ATORVASTATIN 40 MG TAB PO SCH (21:00)
[2018-04-14] MEDS ORDERED: ASPIRIN 81 MG TAB PO SCH (09:00)
== END 2018-04-13 18:35 | disposition home or self-care (01) | DRG 149 ==
LOC: E/R 16:31 → TEL 17:51
PROVIDERS: ADMIT Hospitalist; ATTEND Internal Medicine
DX: R42 Dizziness and giddiness (principal); E88.81 Metabolic syndrome and other insulin resistance; I10 Essential (primary) hypertension; Z87.891 Personal history of nicotine dependence; E78.5 Hyperlipidemia, unspecified; M19.90 Unspecified osteoarthritis, unspecified site; E66.9 Obesity, unspecified; Z68.37 Body mass index [BMI] 37.0-37.9, adult; Z86.73 Personal history of transient ischemic attack (TIA), and cerebral infarction without residual deficits
CPT/HCPCS: 36415; 70450; 70496; 70498; 70551; 71045; 80048; 80053; 80061; 80307; 81001; 82550; 82553; 82962; 83036; 83735; 84100; 84484; 85025; 85610; 85730; 92610; 93005; 97162; J1650; J1815; J2060; J2270; J2405; J7030; Q9967